=== PATIENT | male | born 1930 | race Caucasian/White ===

== ENCOUNTER → 2018-10-05 | Outpatient (CLI) | payer MEDICARE, OTHER ==
[~2018-10-05] MED LIST: AEC81 PO; AMLO2.5T4 PO; EZET10 PO; METO25 PO; OXYB15TA PO; RANO500T2 PO; SIMV40TA59 PO; TAMS-1 PO
== END | disposition home or self-care (01) ==
LOC: SHCH 14:23
PROVIDERS: ATTEND Internal Medicine Cardiovascular Disease
DX: I35.8 Other nonrheumatic aortic valve disorders (principal); I10 Essential (primary) hypertension
CPT/HCPCS: 93306

== ENCOUNTER → 2019-10-21 | Outpatient (CLI) | payer MEDICARE, OTHER ==
[~2019-10-21] MED LIST changes: -EZET10 PO; +EZET10TA13 PO; -OXYB15TA PO; +OXYB15TA19 PO
== END | disposition home or self-care (01) ==
LOC: SHCH 16:48
PROVIDERS: ATTEND Internal Medicine Cardiovascular Disease
DX: I65.23 Occlusion and stenosis of bilateral carotid arteries (principal)
CPT/HCPCS: 93880

== ENCOUNTER 2020-05-25 11:24 | Emergency (ER) | payer MEDICARE, OTHER | END 2020-05-25 13:02 | disposition home or self-care (01) | LOC: EDH 11:24 | DX: R31.9 Hematuria, unspecified (principal); T83.098A Other mechanical complication of other urinary catheter, initial encounter; I10 Essential (primary) hypertension; Z87.891 Personal history of nicotine dependence | CPT/HCPCS: 51701 ==

== ENCOUNTER 2020-05-28 10:13 | Emergency (ER) | payer MEDICARE ==
[2020-05-28 11:32] LABS: BASOPHILS % (AUTO) 0.3 % (0.0-5.0); EOSINOPHILS % (AUTO) 2.3 % (0.0-8.0); HEMATOCRIT 37.1 % (42-54); LYMPHOCYTES % (AUTO) 23.3 % (21.0-51.0); MEAN CORPUSCULAR HEMOGLOBIN 32.1 pg (27.0-33.0); MEAN CORPUSCULAR HGB CONC 33.4 g/dL (32.0-36.0); MEAN CORPUSCULAR VOLUME 96.1 fL (79-99); MONOCYTES % (AUTO) 9.5 % (3.0-13.0); NEUTROPHILS % (AUTO) 64.3 % (40.0-77.0); PLATELET COUNT (AUTO) 362 K/uL (130-400); RED BLOOD CELL COUNT(AUTO) 3.86 MIL/uL (4.50-6.20); RED CELL DISTRIBUTION WIDTH 14.4 % (11.0-15.5); WHITE BLOOD COUNT (AUTO) 8.6 K/uL (4.8-10.8)
[2020-05-28 11:41] LABS: ALBUMIN 3.3 g/dL (3.5-5.0); BILIRUBIN,TOTAL 0.3 mg/dL (0.2-1.0); TOTAL PROTEIN, SERUM 7.6 g/dL (6.0-8.3)
[2020-05-28 11:53] LABS: APPEARANCE,URINE TURBID (CLEAR); BILIRUBIN,URINE NEGATIVE (NEGATIVE); COLOR,URINE RED (YELLOW); GLUCOSE, URINE (UA) NEGATIVE (NEGATIVE); KETONES,URINE NEGATIVE (NEGATIVE); LEUKOCYTE ESTERASE ,URINE SMALL (NEGATIVE); NITRATE,URINE NEGATIVE (NEGATIVE); OCCULT BLOOD,URINE LARGE (NEGATIVE); PH,URINE 6.5 (5.0-8.0); PROTEIN,URINE >=300 mg/dL (NEGATIVE); UROBILINOGEN,URINE 0.2 mg/dL (0.2-1.0)
[2020-05-28 12:11] LABS: RBC,URINE TNTC /HPF (0-1); WBC,URINE 51-100 /HPF (0-1)
[2020-05-28 12:12] LABS: BACTERIA,URINE Few /HPF (None Seen); SQUAMOUS EPITHELIAL CELL,UR Rare /HPF (0-2)
== END 2020-05-28 13:28 | disposition home or self-care (01) ==
LOC: EDH 10:13
DX: T83.091A Other mechanical complication of indwelling urethral catheter, initial encounter (principal); N13.9 Obstructive and reflux uropathy, unspecified; I10 Essential (primary) hypertension; Z87.891 Personal history of nicotine dependence; Z85.46 Personal history of malignant neoplasm of prostate; G47.30 Sleep apnea, unspecified
CPT/HCPCS: 36415; 51702; 80053; 81001; 85025; 87088; 99281

== ENCOUNTER 2020-05-28 21:39 | Emergency (ER) | payer MEDICARE | END 2020-05-28 22:40 | disposition home or self-care (01) | LOC: EDH 21:39 | DX: T83.098A Other mechanical complication of other urinary catheter, initial encounter (principal); I10 Essential (primary) hypertension; G47.30 Sleep apnea, unspecified; Y73.8 Miscellaneous gastroenterology and urology devices associated with adverse incidents, not elsewhere classified; Y92.89 Other specified places as the place of occurrence of the external cause | CPT/HCPCS: 99281 ==

== ENCOUNTER → 2020-06-26 | Outpatient (CLI) | payer MEDICARE, OTHER ==
[~2020-06-26] MED LIST changes: +IOHEXOL 350 MG/ML 100ML INFUS..BTL IV ONE
== END | disposition home or self-care (01) ==
LOC: RAH 09:19
PROVIDERS: ATTEND Urology Pediatric Urology
DX: K80.20 Calculus of gallbladder without cholecystitis without obstruction (principal); K40.20 Bilateral inguinal hernia, without obstruction or gangrene, not specified as recurrent; R31.9 Hematuria, unspecified; R10.9 Unspecified abdominal pain; R18.8 Other ascites
CPT/HCPCS: 74178; Q9967

== ENCOUNTER 2020-09-06 12:28 | Inpatient (IN) | payer MEDICARE, OTHER ==
[~2020-09-06] VITALS: Ht 175.3 cm; Wt 67.9 kg
[~2020-09-06 12:28] MED LIST changes: -IOHEXOL 350 MG/ML 100ML INFUS..BTL IV ONE
[2020-09-06] MEDS ORDERED: DILTIAZEM 25MG INJ IVP ONE (12:41)
[2020-09-06] MEDS ORDERED: AMIODARONE 150MG VIAL ONE (12:50)
[2020-09-06 12:57] LABS: BASOPHILS % (AUTO) 0.3 % (0.0-5.0); EOSINOPHILS % (AUTO) 0.1 % (0.0-8.0); HEMATOCRIT 40.6 % (42-54); LYMPHOCYTES % (AUTO) 6.4 % (21.0-51.0); MEAN CORPUSCULAR HEMOGLOBIN 27.8 pg (27.0-33.0); MEAN CORPUSCULAR HGB CONC 32.8 g/dL (32.0-36.0); MEAN CORPUSCULAR VOLUME 84.8 fL (79-99); MONOCYTES % (AUTO) 9.4 % (3.0-13.0); NEUTROPHILS % (AUTO) 83.2 % (40.0-77.0); PLATELET COUNT (AUTO) 307 K/uL (130-400); RED BLOOD CELL COUNT(AUTO) 4.79 MIL/uL (4.50-6.20); RED CELL DISTRIBUTION WIDTH 16.8 % (11.0-15.5); WHITE BLOOD COUNT (AUTO) 25.4 K/uL (4.8-10.8)
[2020-09-06 13:22] LABS: INR 1.23 (0.85-1.15); PROTHROMBIN TIME 12.9 SEC (9.6-11.6)
[2020-09-06 13:23] LABS: PARTIAL THROMBOPLASTIN TIME 29.2 SEC (26.3-35.5)
[2020-09-06 14:06] LABS: CREATININE 1.6 mg/dL (0.5-1.5); POTASSIUM 3.8 mmol/L (3.5-5.1)
[2020-09-06 14:10] LABS: ALBUMIN 2.9 g/dL (3.5-5.0); BILIRUBIN,TOTAL 0.7 mg/dL (0.2-1.0); TOTAL PROTEIN, SERUM 7.5 g/dL (6.0-8.3)
[2020-09-06] MEDS ORDERED: AMIODARONE 900MG VIAL 900 MG in DEXTROSE 5%-WATER 500 ML IV NR (14:45)
[2020-09-06] MEDS ORDERED: RENAL DOSE IV SCH (15:30)
[2020-09-06] MEDS ORDERED: ZOSYN 3.375GM+NS 50ML 50 ML IV SCH (15:45)
[2020-09-06 15:52] LABS: MAGNESIUM 1.7 mg/dL (1.80-2.40); THYROID STIMULATING HORMONE 2.87 uIU/mL (0.36-3.74)
[2020-09-06] MEDS ORDERED: ZOSYN 3.375GM+NS 50ML 50 ML IV ONE (17:58)
[2020-09-06] MEDS ORDERED: MAGNESIUM 2GM PREMIX 50ML 50 ML IV PRN (18:15)
[2020-09-06 18:31] LABS: APPEARANCE,URINE TURBID (CLEAR); BILIRUBIN,URINE NEGATIVE (NEGATIVE); COLOR,URINE YELLOW (YELLOW); GLUCOSE, URINE (UA) NEGATIVE (NEGATIVE); KETONES,URINE NEGATIVE (NEGATIVE); LEUKOCYTE ESTERASE ,URINE MODERATE (NEGATIVE); NITRATE,URINE POSITIVE (NEGATIVE); OCCULT BLOOD,URINE MODERATE (NEGATIVE); PROTEIN,URINE 100 mg/dL (NEGATIVE); UROBILINOGEN,URINE 0.2 mg/dL (0.2-1.0)
[2020-09-06 18:38] LABS: BACTERIA,URINE Few /HPF (None Seen); WBC,URINE TNTC /HPF (0-1)
[2020-09-06 18:39] LABS: SQUAMOUS EPITHELIAL CELL,UR None Seen /HPF (0-2)
[2020-09-07] MEDS ORDERED: ZOSYN 3.375GM+NS 50ML 50 ML IV ONE ×2 (03:16→09:55)
[2020-09-07] MEDS ORDERED: ROSU5TAB12 PO (03:23)
[2020-09-07 07:22] LABS: BASOPHILS % (AUTO) 0.3 % (0.0-5.0); EOSINOPHILS % (AUTO) 0.2 % (0.0-8.0); MEAN CORPUSCULAR HEMOGLOBIN 27.8 pg (27.0-33.0); MEAN CORPUSCULAR HGB CONC 32.9 g/dL (32.0-36.0); MEAN CORPUSCULAR VOLUME 84.5 fL (79-99); MONOCYTES % (AUTO) 7.9 % (3.0-13.0); PLATELET COUNT (AUTO) 215 K/uL (130-400); RED BLOOD CELL COUNT(AUTO) 4.14 MIL/uL (4.50-6.20); RED CELL DISTRIBUTION WIDTH 16.8 % (11.0-15.5); WHITE BLOOD COUNT (AUTO) 18.6 K/uL (4.8-10.8)
[2020-09-07 07:31] LABS: CREATININE 1.2 mg/dL (0.5-1.5); MAGNESIUM 1.8 mg/dL (1.80-2.40); POTASSIUM 3.7 mmol/L (3.5-5.1)
[2020-09-07] MEDS ORDERED: MECL-160 PO (09:11)
[2020-09-07] MEDS ORDERED: APIX5TAB PO (09:11)
[2020-09-07] MEDS ORDERED: MAGNESIUM 2GM PREMIX 50ML 50 ML IV ONE (09:55)
[2020-09-07] MEDS ORDERED: MAGNESIUM 2GM PREMIX 50ML 50 ML IV SCH (13:00)
[2020-09-07] MEDS ORDERED: KCL 20 MEQ ERTAB PO SCH (13:00)
[2020-09-07] MEDS ORDERED: KCL 20 MEQ ERTAB PO ONE (13:11)
[2020-09-07 15:03] VITALS: BP 116/53
[2020-09-07] MEDS: RANOLAZINE 500 MG TAB.SR.12H PO SCH ×3 (15:37→20:16)
[2020-09-07] MEDS: AMIODARONE 200 MG TABLET PO SCH (15:38)
[2020-09-07 20:01] VITALS: BP 125/61
[2020-09-07] MEDS: ATORVASTATIN 10 MG TABLET PO SCH (20:16)
[2020-09-07] MEDS: ZOSYN 3.375GM+NS 50ML 50 ML IV SCH (20:16)
[2020-09-07] MEDS ORDERED: METOPROLOL TARTRATE 1 MG/ML 5ML VIAL IV ONE (23:24)
[2020-09-07] MEDS ORDERED: AMIODARONE 900MG VIAL IV ONE (23:36)
[2020-09-07] MEDS ORDERED: DEXTROSE 5%-WATER 500 ML IV ONE (23:41)
[2020-09-07 23:53] VITALS: BP 126/62
[2020-09-08] MEDS: SIMETHICONE 80 MG TAB.CHEW PO SCH ×2 (01:19→20:12)
[2020-09-08 03:36] VITALS: BP 121/61
[2020-09-08 04:57] LABS: HEMATOCRIT 36.1 % (42-54); MEAN CORPUSCULAR HEMOGLOBIN 27.5 pg (27.0-33.0); MEAN CORPUSCULAR HGB CONC 31.9 g/dL (32.0-36.0); MEAN CORPUSCULAR VOLUME 86.4 fL (79-99); RED BLOOD CELL COUNT(AUTO) 4.18 MIL/uL (4.50-6.20); RED CELL DISTRIBUTION WIDTH 16.5 % (11.0-15.5); WHITE BLOOD COUNT (AUTO) 13.8 K/uL (4.8-10.8)
[2020-09-08 05:34] LABS: CREATININE 1.1 mg/dL (0.5-1.5); POTASSIUM 4.1 mmol/L (3.5-5.1)
[2020-09-08] MEDS: ZOSYN 3.375GM+NS 50ML 50 ML IV SCH ×3 (06:13→22:01)
[2020-09-08 06:27] LABS: CRP QUANTITATIVE 521.6 mg/L (0.00-9.0)
[2020-09-08] MEDS: AMIODARONE 200 MG TABLET PO SCH (08:02)
[2020-09-08] MEDS: RANOLAZINE 500 MG TAB.SR.12H PO SCH ×2 (08:09→22:02)
[2020-09-08 08:17] VITALS: BP 125/58
[2020-09-08 11:20] VITALS: BP 107/56
[2020-09-08] MEDS ORDERED: MECLIZINE HCL 25 MG TABLET PO PRN (12:15)
[2020-09-08 16:03] VITALS: BP 128/66
[2020-09-08 20:00] VITALS: BP 151/68
[2020-09-08] MEDS: ATORVASTATIN 10 MG TABLET PO SCH (22:02)
[2020-09-09] VITALS (7 sets, daily range): BP systolic 111–147; BP diastolic 48–80
[2020-09-09 04:18] LABS: BASOPHILS % (AUTO) 0.3 % (0.0-5.0); EOSINOPHILS % (AUTO) 3.1 % (0.0-8.0); HEMATOCRIT 35.7 % (42-54); LYMPHOCYTES % (AUTO) 8.6 % (21.0-51.0); MEAN CORPUSCULAR HEMOGLOBIN 27.3 pg (27.0-33.0); MEAN CORPUSCULAR HGB CONC 31.9 g/dL (32.0-36.0); MEAN CORPUSCULAR VOLUME 85.6 fL (79-99); MONOCYTES % (AUTO) 10.5 % (3.0-13.0); NEUTROPHILS % (AUTO) 77.2 % (40.0-77.0); PLATELET COUNT (AUTO) 232 K/uL (130-400); RED BLOOD CELL COUNT(AUTO) 4.17 MIL/uL (4.50-6.20); RED CELL DISTRIBUTION WIDTH 16.4 % (11.0-15.5); WHITE BLOOD COUNT (AUTO) 10.6 K/uL (4.8-10.8)
[2020-09-09 04:32] LABS: CREATININE 1.1 mg/dL (0.5-1.5); POTASSIUM 3.9 mmol/L (3.5-5.1)
[2020-09-09] MEDS: ZOSYN 3.375GM+NS 50ML 50 ML IV SCH ×3 (04:51→21:03)
[2020-09-09] MEDS ORDERED: AMIODARONE 150MG VIAL 150 MG in DEXTROSE 5%-WATER 100 ML IV SCH (07:00)
[2020-09-09] MEDS: AMIODARONE 200 MG TABLET PO SCH ×2 (08:02→21:02)
[2020-09-09] MEDS: RANOLAZINE 500 MG TAB.SR.12H PO SCH ×2 (08:02→21:02)
[2020-09-09] MEDS: TAMSULOSIN HCL 0.4 MG CAP.ER.24H PO SCH (13:35)
[2020-09-09] MEDS: DILTIAZEM 120MG SR CAP PO SCH (13:38)
[2020-09-09] MEDS: ATORVASTATIN 10 MG TABLET PO SCH (21:02)
[2020-09-10 00:06] VITALS: BP 121/52
[2020-09-10] MEDS: SIMETHICONE 80 MG TAB.CHEW PO SCH ×2 (01:00→20:24)
[2020-09-10 05:01] VITALS: BP 137/61
[2020-09-10] MEDS: ZOSYN 3.375GM+NS 50ML 50 ML IV SCH ×3 (06:50→21:51)
[2020-09-10 08:00] VITALS: BP 160/94
[2020-09-10] MEDS ORDERED: DILT-36 PO (08:42)
[2020-09-10] MEDS ORDERED: AMIO200T68 PO (08:42)
[2020-09-10] MEDS: AMIODARONE 200 MG TABLET PO SCH ×3 (09:00→21:52)
[2020-09-10] MEDS: TAMSULOSIN HCL 0.4 MG CAP.ER.24H PO SCH (09:20)
[2020-09-10] MEDS: RANOLAZINE 500 MG TAB.SR.12H PO SCH ×2 (09:20→21:51)
[2020-09-10 12:00] VITALS: BP 118/58
[2020-09-10] MEDS: DILTIAZEM 120MG SR CAP PO SCH (14:19)
[2020-09-10 16:00] VITALS: BP 123/67
[2020-09-10 20:40] VITALS: BP 143/71
[2020-09-10] MEDS: ATORVASTATIN 10 MG TABLET PO SCH (21:51)
[2020-09-11] VITALS (7 sets, daily range): BP systolic 102–124; BP diastolic 53–66
[2020-09-11] MEDS: ZOSYN 3.375GM+NS 50ML 50 ML IV SCH ×3 (04:28→20:15)
[2020-09-11] MEDS: RANOLAZINE 500 MG TAB.SR.12H PO SCH ×2 (09:11→20:15)
[2020-09-11] MEDS: TAMSULOSIN HCL 0.4 MG CAP.ER.24H PO SCH (09:12)
[2020-09-11] MEDS: AMIODARONE 200 MG TABLET PO SCH ×2 (09:12→20:15)
[2020-09-11 10:32] LABS: INR 1.2 (0.85-1.15); PROTHROMBIN TIME 12.6 SEC (9.6-11.6)
[2020-09-11] MEDS: DILTIAZEM 120MG SR CAP PO SCH (12:59)
[2020-09-11] MEDS ORDERED: DILTIAZEM 120MG SR CAP PO SCH (16:30)
[2020-09-11] MEDS: ATORVASTATIN 10 MG TABLET PO SCH (20:15)
[2020-09-12] MEDS: SIMETHICONE 80 MG TAB.CHEW PO SCH (02:40)
[2020-09-12 04:00] VITALS: BP 95/55
[2020-09-12] MEDS: ZOSYN 3.375GM+NS 50ML 50 ML IV SCH ×2 (05:08→13:02)
[2020-09-12] MEDS: AMIODARONE 200 MG TABLET PO SCH (08:30)
[2020-09-12] MEDS: RANOLAZINE 500 MG TAB.SR.12H PO SCH (08:30)
[2020-09-12] MEDS: DILTIAZEM 120MG SR CAP PO SCH ×2 (08:30→13:02)
[2020-09-12] MEDS: TAMSULOSIN HCL 0.4 MG CAP.ER.24H PO SCH (08:33)
[2020-09-12 08:36] VITALS: BP 104/55
[2020-09-12 12:22] VITALS: BP 110/54
[2020-09-12 16:47] VITALS: BP 116/59
[2020-09-12 21:20] VITALS: BP 123/68
[2020-09-13] MEDS: ATORVASTATIN 10 MG TABLET PO SCH ×2 (00:19→22:16)
[2020-09-13] MEDS: RANOLAZINE 500 MG TAB.SR.12H PO SCH ×3 (00:19→22:16)
[2020-09-13] MEDS: SIMETHICONE 80 MG TAB.CHEW PO SCH (00:19)
[2020-09-13] MEDS: ZOSYN 3.375GM+NS 50ML 50 ML IV SCH ×4 (00:19→22:16)
[2020-09-13] MEDS: AMIODARONE 200 MG TABLET PO SCH ×3 (00:19→22:16)
[2020-09-13 00:35] VITALS: BP 112/60
[2020-09-13 04:33] VITALS: BP 102/51
[2020-09-13] MEDS: TAMSULOSIN HCL 0.4 MG CAP.ER.24H PO SCH (08:23)
[2020-09-13] MEDS: DILTIAZEM 120MG SR CAP PO SCH ×2 (08:24→12:46)
[2020-09-13 08:39] VITALS: BP 114/55
[2020-09-13 09:05] LABS: HEMATOCRIT 35.3 % (42-54); MEAN CORPUSCULAR HEMOGLOBIN 27.8 pg (27.0-33.0); MEAN CORPUSCULAR VOLUME 86.7 fL (79-99); RED BLOOD CELL COUNT(AUTO) 4.07 MIL/uL (4.50-6.20); RED CELL DISTRIBUTION WIDTH 16.3 % (11.0-15.5); WHITE BLOOD COUNT (AUTO) 12.4 K/uL (4.8-10.8)
[2020-09-13 09:19] LABS: ALBUMIN 2.3 g/dL (3.5-5.0); BILIRUBIN,TOTAL 0.3 mg/dL (0.2-1.0); POTASSIUM 3.5 mmol/L (3.5-5.1); TOTAL PROTEIN, SERUM 6.4 g/dL (6.0-8.3)
[2020-09-13 11:39] VITALS: BP 123/53
[2020-09-13 16:06] VITALS: BP 101/52
[2020-09-13 20:00] VITALS: BP 130/60
[2020-09-14 01:14] VITALS: BP 126/62
[2020-09-14] MEDS: SIMETHICONE 80 MG TAB.CHEW PO SCH (01:23)
[2020-09-14 05:32] VITALS: BP 141/71
[2020-09-14] MEDS: ZOSYN 3.375GM+NS 50ML 50 ML IV SCH (05:45)
[2020-09-14 08:48] VITALS: BP 136/61
[2020-09-14] MEDS: RANOLAZINE 500 MG TAB.SR.12H PO SCH (10:33)
[2020-09-14] MEDS: AMIODARONE 200 MG TABLET PO SCH (10:34)
[2020-09-14] MEDS: DILTIAZEM 120MG SR CAP PO SCH (10:34)
[2020-09-14] MEDS: TAMSULOSIN HCL 0.4 MG CAP.ER.24H PO SCH (10:34)
[2020-09-14] MEDS ORDERED: TERB30CR8 TP (11:07)
[2020-11-28] MEDS ORDERED: ONDA4TAB10 PO (19:41)
[2020-11-28] MEDS ORDERED: AMIO200T68 PO (19:42)
[2020-11-28] MEDS ORDERED: BETA1TAB18 PO (19:47)
[2020-11-28] MEDS ORDERED: NITR100C PO (19:47)
[2020-11-28] MEDS ORDERED: CYAN1TAB44 PO (19:47)
[2020-11-28] MEDS ORDERED: GLUC100026 PO (19:47)
[2020-11-28] MEDS ORDERED: ROSU5TAB12 PO (19:47)
[2021-02-14] MEDS ORDERED: LINA72CA PO (03:19)
[2021-04-01] MEDS ORDERED: PHEN-847 PO (17:48)
[2021-04-01] MEDS ORDERED: CEPH500B PO (17:48)
[2021-04-22] MEDS ORDERED: ONDA4TAB4 PO (15:43)
[2021-04-22] MEDS ORDERED: AMIO100T4 PO (15:43)
[2021-04-22] MEDS ORDERED: DONE5TAB33 PO (15:43)
[2021-04-22] MEDS ORDERED: MIDO2.5T PO (15:43)
[2021-04-22] MEDS ORDERED: MEGE40TA5 PO (15:43)
[2021-04-24] MEDS ORDERED: HALO15CR3 TP (16:54)
== END 2020-09-14 12:10 | disposition home or self-care (01) | DRG 872 ==
LOC: EDH 12:28 → EDHIP 15:11 → 4DH 09-07 15:07
PROVIDERS: ADMIT Internal Medicine; ATTEND Internal Medicine
PROC: 02HV33Z Insertion of Infusion Device into Superior Vena Cava, Percutaneous Approach (ICD-10-PCS; principal; 2020-09-11)
DX: A41.51 Sepsis due to Escherichia coli [E. coli] (principal); I47.1 Supraventricular tachycardia; I48.92 Unspecified atrial flutter; I45.2 Bifascicular block; N13.6 Pyonephrosis; I48.0 Paroxysmal atrial fibrillation; N18.30 Chronic kidney disease, stage 3 unspecified; G47.33 Obstructive sleep apnea (adult) (pediatric); C61 Malignant neoplasm of prostate; E78.5 Hyperlipidemia, unspecified; I12.9 Hypertensive chronic kidney disease with stage 1 through stage 4 chronic kidney disease, or unspecified chronic kidney disease; I25.10 Atherosclerotic heart disease of native coronary artery without angina pectoris; K57.30 Diverticulosis of large intestine without perforation or abscess without bleeding; Z20.822 Contact with and (suspected) exposure to COVID-19; N40.1 Benign prostatic hyperplasia with lower urinary tract symptoms; R33.8 Other retention of urine; B96.5 Pseudomonas (aeruginosa) (mallei) (pseudomallei) as the cause of diseases classified elsewhere; R53.81 Other malaise; Z79.01 Long term (current) use of anticoagulants; Z80.0 Family history of malignant neoplasm of digestive organs; Z82.0 Family history of epilepsy and other diseases of the nervous system; Z82.3 Family history of stroke; Z82.49 Family history of ischemic heart disease and other diseases of the circulatory system; Z82.5 Family history of asthma and other chronic lower respiratory diseases; Z83.3 Family history of diabetes mellitus
CPT/HCPCS: 36415; 36569; 71045; 74176; 80048; 80053; 81001; 83735; 84145; 84443; 84484; 85025; 85027; 85610; 85651; 85730; 86140; 87040; 87077; 87088; 87186; 87426; 93005; 93306; 93356; 97039; 99291; C1894; G0378; J0282; J2543; J3475; J3490; J7060; U0003